=== PATIENT | male | born 1955 | race Caucasian/White ===

== ENCOUNTER 2018-05-31 12:33 | Emergency (ER) | payer OTHER ==
[~2018-05-31] VITALS: Ht 177.8 cm; Wt 120.2 kg
[2018-05-31] MEDS ORDERED: OMEPRAZOLE40 M1 ORAL (12:39)
[2018-05-31] MEDS ORDERED: ZOLPIDEM TARTRA10 MG ORAL (12:39)
[2018-05-31] MEDS ORDERED: LOXAPINE10 MG PO (12:39)
[2018-05-31] MEDS ORDERED: LISINOPRIL5 MG ORAL (12:39)
[2018-05-31] MEDS ORDERED: METOPROLOL TART25 MG ORAL (12:39)
[2018-05-31] MEDS ORDERED: QUETIAPINE FUM300 MG ORAL (12:39)
--- NOTE | 2018-05-31 13:08 | Emergency Room Report ---
History of Present Illness General Chief Complaint: Upper Respiratory Illness Source: Medical Record Present Illness HPI 62-year-old male patient presents the ER brought in by ambulance complaining of cough and cold symptoms". Patient reports symptoms been present for the past few days. Patient reports that 2 days ago he experienced one episode of sharp chest pain while sitting at rest. Patient reports a felt similar pains today while sitting at rest after drinking a cup of coffee. Patient reports that chest pain symptoms have improved since that time. Denies shortness of breath. Reports history of smoking cigarettes. Denies history of heart attack. Reports history of hypertension. Reports subjective fever, afebrile in the ER. Denies abdominal pain. Denies history of COPD. Denies calf pain. denies history of asthma. Denies symptoms worse with lying down. Allergies: Coded Allergies: No Known Allergies (Unverified , 05/31/18) Patient History Past Medical History: see triage record Reviewed Nursing Documentation: PMH: Agreed; PSxH: Agreed Nursing Documentation-PMH Hx Hypertension: Yes History Of Psychiatric Problem: Yes - schizophrenia Review of Systems All Other Systems: negative except mentioned in HPI Physical Exam Vital Signs Date Time Temp Pulse Resp B/P (MAP) Pulse Ox O2 Delivery O2 Flow Rate FiO2 05/31/18 12:28 98.2 96 18 150/68 98 Room Air Sp02 EP Interpretation: reviewed, normal General Appearance: well appearing, no apparent distress, alert, GCS 15, non- toxic Head: normocephalic, atraumatic Eyes: bilateral eye normal inspection, bilateral eye PERRL ENT: hearing grossly normal, normal pharynx, no angioedema, normal voice, uvula midline, moist mucus membranes Neck: full range of motion Respiratory: lungs clear, normal breath sounds, no rhonchi, no respiratory distress, no accessory muscle use, no wheezing, speaking full sentences Cardiovascular #1: regular rate, rhythm, no edema Cardiovascular #2: 2+ radial (R), 2+ radial (L) Gastrointestinal: non tender, soft, no mass, non-distended, no guarding, no pulsatile mass, no rebound, other - negative Baum Genitourinary: no CVA tenderness Musculoskeletal: back normal, digits/nails normal, gait/station normal, normal range of motion, non-tender, no calf tenderness, Bryson's Sign negative Neurologic: alert, oriented x3, responsive, motor strength/tone normal, sensory intact Skin: no rash Medical Decision Making PA Attestation Dr. Bowser is my supervising Physician whom patient management has been discussed with. Diagnostic Impression: Primary Impression: Upper respiratory infection Additional Impression: Atypical chest pain ER Course Pt. presents to the ED c/o cough, cold symptoms and hx of chest pain, denies hx of [place]. Ddx considered but are not limited to [place], arrhythmia, DVT, PE, pneumonia, bronchitis, costochondritis, anxiety. No calf swelling, negative Bryson's sign, tachycardia, no hemoptysis, ambulatory in the ER, low suspicion for DVT pr PE per Well's criteria. Low suspicion for cardiac cause of pain. Will order labs to rule out. Vital signs: are WNL, pt. is afebrile Ordered X-ray, labs, troponin, EKG and aspirin medication. ER COURSE Exam benign. Labs shows no elevation in WBC or LFTs Troponin negative CXR negative for acute disease EKG shows no ST or atrial fibrillation Low suspicion for cardiac etiology of symptoms due to negative chest x-ray, negative troponin and unremarkable EKG, and for [place] or CHF or ACS. Lungs clear to auscultation, no wheezes rhonchi rales, does not require breathing treatment, patient denies shortness of breath. Likely URI. No signs or symptoms consistent with bacterial infection requiring antibiotics at this time. Patient denies acute complaints of chest pain ER at this time advised patient to follow-up with primary care and discuss referral to cardiology, discussed need for stress testing and use of Holter monitor. Drink plenty fluids. Symptomatic treatment. Advised patient against smoking. Followup with primary care provider, discuss referral to cardiology. Patient will be admitted. DISCHARGE: At this time pt. is stable for d/c to home. Patient is resting comfortably, in no acute distress, nontoxic appearing, talking without difficulty. Will provide printed patient care instructions, and any necessary prescriptions. Patient instructed to follow with primary care provider in 1-3 days. Followup with primary care provider for further pain medication rx. Followup with house carpenter helper and eye doctor. Care plan and follow up instructions have been discussed with the patient prior to discharge. Take medications as directed. Patient questions asked and answered. Patient reports understanding and agreement to treatment plan. ER precautions given, patient instructed to return to ER immediately for any new or worsening of symptoms. - Please note that this Emergency Department Report was dictated using [employer] printer and tagger technology software, occasionally this can lead to erroneous entry secondary to interpretation by the dictation equipment. EKG Diagnostic Results Rate: normal Rhythm: NSR ST Segments: no acute changes ASA given to the pt in ED: Yes ROBIN Bruner PA-C Rhythm Strip Diag. Results EP Interpretation: yes Rate: 69 Rhythm: NSR, no PVC's, no ectopy ROBIN LillyibLia Bruner PA-C Chest X-Ray Diagnostic Results Chest X-Ray Diagnostic Results : Chest X-Ray Ordered: Yes # of Views/Limited/Complete: 1 View Indication: Chest Pain EP Interpretation: Yes PA Xray: Interpretation reviewed, by supervising MD, and agrees with findings. Interpretation: no consolidation, no effusion, no pneumothorax, no acute cardiopulmonary disease Impression: No acute disease ROBIN Bruner PA-C Last Vital Signs Date Time Temp Pulse Resp B/P (MAP) Pulse Ox O2 Delivery O2 Flow Rate FiO2 05/31/18 12:28 98.2 96 18 150/68 98 Room Air Disposition: HOME, SELF-CARE Condition: Stable Scripts D-Methorphan/PE/Acetaminophen (Sudafed PE Pressure+Pain+Cough) 1 Each Tablet 1 EACH PO TID, #24 TAB Prov: Jacobo Bruner 05/31/18 Acetaminophen* (TYLENOL EXTRA STRENGTH*) 500 Mg Tablet 500 MG ORAL Q8H PRN for Prn Headache/Temp > 101, #30 TAB 0 Refills Prov: Jacobo Bruner 05/31/18 Patient Instructions: Nonspecific Chest Pain, [id number], Upper Respiratory Infection, Adult Additional Instructions: Followup with primary care provider in 2-3 days. Referral to cardiology, discussed need for cardiac stress testing and Holter monitor. Take medications as directed. Patient questions asked and answered. ER precautions given, patient instructed to return to ER immediately for any new or worsening of symptoms. Jacobo Bruner May 31, 2018 13:08
[2018-05-31 13:28] LABS: ANION GAP 8 mmol/L (5-15); BLOOD UREA NITROGEN 13 mg/dL (7-18); CALCIUM 9.4 MG/DL (8.5-10.1); CARBON DIOXIDE 29 MMOL/L (21-32); CHLORIDE 103 MMOL/L (98-107); INR 0.9 (0.9-1.1); POTASSIUM 4.3 MMOL/L (3.5-5.1); SODIUM 139 MMOL/L (136-145)
[2018-05-31 13:31] VITALS: BP 119/72
[2018-05-31 13:33] LABS: BASOPHILS % (AUTO) 1.1 % (0.0-2.0); HEMATOCRIT 45.3 % (42.0-52.0); HEMOGLOBIN 14.9 G/DL (14.2-18.0); LYMPHOCYTES % (AUTO) 27.5 % (20.0-45.0); MEAN CORPUSCULAR VOLUME 91 FL (80-99); NEUTROPHILS % (AUTO) 62.3 % (45.0-75.0); PLATELET COUNT 251 K/UL (150-450); RED BLOOD COUNT 4.96 M/UL (4.70-6.10); RED CELL DISTRIBUTION WIDTH 12.7 % (11.6-14.8); WHITE BLOOD COUNT 10.7 K/UL (4.8-10.8)
[2018-05-31 13:42] LABS: ALANINE AMINOTRANSFERASE 28 U/L (12-78); ALBUMIN 3.6 G/DL (3.4-5.0); ALBUMIN/GLOBULIN RATIO 0.7 (1.0-2.7); ALKALINE PHOSPHATASE 96 U/L (46-116); ASPARTATE AMINO TRANSFERASE 16 U/L (15-37); BILIRUBIN,TOTAL 0.3 MG/DL (0.2-1.0); CKMB 0.9 NG/ML (0.0-3.6); CREATINE KINASE 226 U/L (26-308)
--- NOTE | 2018-05-31 13:48 | Diagnostic Imaging Report ---
Indication: Chest pain Comparison: None A single view chest radiograph was obtained. Findings: Cardiomediastinal appearance is within normal limits for age. The lungs are clear. Pulmonary vascularity is appropriate. The diaphragmatic contour is smooth and costophrenic angles are sharp. No pleural effusions are identified. The bones are unremarkable. Impression: No acute findings
[2018-05-31 14:31] LABS: APPEARANCE,URINE CLEAR; BILIRUBIN, URINE NEGATIVE (NEGATIVE); COLOR,URINE PALE YELLOW; GLUCOSE, URINE (UA) NEGATIVE (NEGATIVE); KETONES,URINE NEGATIVE (NEGATIVE); LEUKOCYTE ESTERASE ,URINE 1+ (NEGATIVE); NITRITE,URINE NEGATIVE (NEGATIVE); PH,URINE 6.5 (4.5-8.0); PROTEIN,URINE NEGATIVE (NEGATIVE); UROBILINOGEN,URINE NORMAL MG/DL (0.0-1.0)
[2018-05-31] MEDS ORDERED: SUDAFED PE PRE1 EACH PO (15:21)
[2018-05-31] MEDS ORDERED: TYLENOL EXTRA500 MG ORAL (15:21)
[2018-05-31 16:21] VITALS: BP 111/73
== END 2018-05-31 16:29 | disposition home or self-care (01) ==
LOC: EDBD 12:33 → EMR 14:47
DX: J06.9 Acute upper respiratory infection, unspecified (principal); R07.89 Other chest pain; I10 Essential (primary) hypertension; F20.9 Schizophrenia, unspecified
CPT/HCPCS: 36415; 71045; 80053; 81003; 82550; 82553; 83880; 84484; 85025; 85610; 85730; 99284